=== PATIENT | male | born 1965 | race Two or more races ===

== ENCOUNTER 2016-11-25 22:11 | Emergency (ER) | payer BC ==
[~2016-11-25 22:11] MED LIST: MOTRIN600 MG PO; NORCO 5/325 TAB1 TAB PO
[2016-11-26] MEDS ORDERED: NO HOME MEDICATION XX (00:05)
== END 2016-11-26 01:06 ==
LOC: EDMED 22:11
PROC: 0HQ0XZZ Repair Scalp Skin, External Approach (ICD-10-PCS; principal; 2016-11-25)
DX: S01.01XA Laceration without foreign body of scalp, initial encounter (principal); V49.40XA Driver injured in collision with unspecified motor vehicles in traffic accident, initial encounter; Y92.410 Unspecified street and highway as the place of occurrence of the external cause